=== PATIENT | male | born 1955 | race Caucasian/White ===

== ENCOUNTER 2019-09-18 12:52 | Emergency (ER) | payer OTHER ==
[2019-09-18] MEDS ORDERED: Sodium Chloride 0.9% 2.5 ML Syringe FLUSH PRN (13:21)
[2019-09-18] MEDS ORDERED: Sodium Chloride 0.9% 10 ML Syringe FLUSH PRN (13:21)
[2019-09-18] MEDS ORDERED: Tetracaine HCl/PF 0.5% 4 ML Bottle EYERT ONE (13:22)
--- NOTE | 2019-09-18 14:08 | EDM.PDOC ---
ED HPI GENERAL MEDICAL PROBLEM - General Chief Complaint: Head Injury Stated Complaint: FELL Time Seen by Provider: 09/18/19 13:05 - History of Present Illness INITIAL COMMENTS - FREE TEXT/NARRATIVE: History of present illness: Patient presents to the ED with concerns over right-sided headache and eye pain. He apparently had a syncopal episode he fell and struck his face and found himself on the floor he does not have any reason for the fall and does not clearly recall the events he then developed some headache and he had an abrasion on his face and he developed some eye pain patient then was seen on Thursday at an ED in [facility] records were sent from that facility to include an unremarkable CT of the brain read. I discussed the case with the ED physician who saw him yesterday he had an infected abrasion on his face and what look like it might be a periorbital cellulitis so he was treated with Cipro drops and clindamycin. In spite of this the patient has been getting worse and so he was brought to our facility. Patient states he is having increased headache he does not get headaches frequently he is having eye pain on the right and blurred vision on the right he denies any fever chills he denies any other injuries in regards to the fall. Review of systems: As per history of present illness and below otherwise all systems reviewed and negative. Past medical history: As per history of present illness and as reviewed below otherwise noncontributory. Surgical history: As per history of present illness and as reviewed below otherwise noncontributory. Social history: No reported history of drug or alcohol abuse. Family history: As per history of present illness and as reviewed below otherwise noncontributory. Physical exam: HEENT: There is an abrasion with a surrounding cellulitis on the forehead., normocephalic, pupils reactive, negative for conjunctival pallor or scleral icterus, mucous membranes moist, throat clear, neck supple, nontender, trachea midline. The right eye is erythematous with conjunctival injection the pupil is reactive but seems to be a bit sluggish to me the eyelid is very tender and there is possibly a mild amount of proptosis. Lungs: Clear to auscultation, breath sounds equal bilaterally, chest nontender. Heart: S1S2, regular, negative for clicks, rubs, or JVD. Abdomen: Soft, nondistended, nontender. Negative for masses or hepatosplenom egaly. Negative for costovertebral tenderness. Pelvis: Stable nontender. Genitourinary: Deferred. Rectal: Deferred. Extremities: Atraumatic, negative for cords or calf pain. Neurovascular unremarkable. Neuro: Awake, alert, oriented. Cranial nerves II through XII unremarkable. Cerebellum unremarkable. Motor and sensory unremarkable throughout. Exam nonfocal. Diagnostics: [] Therapeutics: [] Impression: Syncope, fall with an abrasion with now surrounding cellulitis the eye appears infected possible periorbital or retro-orbital cellulitis versus traumatic glaucoma. [] Plan: We will re-CT the brain for occult bleed we will also CT the orbit for a retro-orbital cellulitis or abscess and were going to check his pressures cardiac work-up and reassess. [] Definitive disposition and diagnosis as appropriate pending reevaluation and review of above. headache Pain Score (Numeric/FACES): 7 - Related Data Allergies Allergy/AdvReac Type Severity Reaction Status Date / Time codeine Allergy Anaphylactic Verified 09/18/19 13:14 Shock Penicillins Allergy Anaphylactic Verified 09/18/19 13:14 Shock Home Meds: Home Meds Acetaminophen 500 mg PO ASDIRECTED 09/18/19 [History] Aspirin 81 mg PO DAILY 09/18/19 [History] Clindamycin HCl 150 mg PO QID 09/18/19 [History] Loperamide [Imodium] 2 cap PO ASDIRECTED 09/18/19 [History] Metoprolol Succinate 100 mg PO BID 09/18/19 [History] Multivitamin 1 tab PO DAILY 09/18/19 [History] Ofloxacin [Ocuflox 0.3% Ophth Soln] 1 drop EYEBOTH ASDIRECTED 09/18/19 [History] atorvaSTATin [Lipitor] 80 mg PO DAILY 09/18/19 [History] lisinopriL [Lisinopril] 20 mg PO DAILY 09/18/19 [History] metFORMIN [Glucophage XR] 500 mg PO BID 09/18/19 [History] Past Medical History HEENT History: Reports: Impaired Vision, Other (See Below) Other HEENT History: wears glassess Cardiovascular History: Reports: High Cholesterol, Hypertension Musculoskeletal History: Reports: None Endocrine/Metabolic History: Reports: Diabetes, Type II - Past Surgical History HEENT Surgical History: Reports: Tonsillectomy Cardiovascular Surgical History: Reports: Other (See Below) Other Cardiovascular Surgeries/Procedures: open heart sx Endocrine Surgical History: Reports: None Musculoskeletal Surgical History: Reports: Other (See Below) Other Musculoskeletal Surgeries/Procedures:: R knee x 4, R wrist Social & Family History - Tobacco Use Smoking Status *Q: Former Smoker Used Tobacco, but Quit: Yes Month/Year Tobacco Last Used: "5 years ago" - Caffeine Use Caffeine Use: Reports: Coffee - Recreational Drug Use Recreational Drug Use: No ED ROS GENERAL - Review of Systems Review Of Systems: See Below ED EXAM, GENERAL - Physical Exam Exam: See Below EKG INTERPRETATION EKG Interpretation Comments: EKG is normal sinus rhythm rate of 67 bpm normal axis no ischemia normal EKG read and interpreted by me. Course - Vital Signs Text/Narrative:: Patient's eye was anesthetized using tetracaine a tonometer Amor-Pen was then u sed to examine the patient's ocular pressures 2 separate measurements were taken they were respectively 13 and 16 indicating normal intraocular pressure therefore I do not believe this represents a glaucoma. Patient was stained with floor seen yesterday by the emergency physician and had corneal abrasions and was placed on the ciprofloxacin drops for that reason. There is no evidence of corneal perforation at this time. At 5 PM I discussed the case with Dr. 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 To the ED for worsening symptoms I will also start him on some [place] for pain Last Recorded V/S: Last Vital Signs Temp 35.9 C L 09/18/19 13:00 Pulse 92 09/18/19 16:39 Resp 17 09/18/19 16:39 BP 125/70 09/18/19 16:39 Pulse Ox 98 09/18/19 16:39 - Orders/Labs/Meds Orders: Active Orders 24 hr Category Date Time Status EKG 12 Lead [EKG Documentation Completion] [RC] STAT Care 09/18/19 13:22 Active Visual Acuity [Vision Test] [RC] ASDIRECTED Care 09/18/19 13:23 Active Sodium Chloride 0.9% [Saline Flush] Med 09/18/19 13:21 Active 10 ml FLUSH ASDIRECTED PRN Sodium Chloride 0.9% [Saline Flush] Med 09/18/19 13:21 Active 2.5 ml FLUSH ASDIRECTED PRN Saline Lock Insert [OM.PC] Stat Oth 09/18/19 13:21 Ordered Medication Orders Sodium Chloride (Saline Flush) 10 ml FLUSH ASDIRECTED PRN PRN Reason: Keep Vein Open Last Admin: 09/18/19 15:59 Dose: 10 ml Documented by: MARY ELLEN Sodium Chloride (Saline Flush) 2.5 ml FLUSH ASDIRECTED PRN PRN Reason: Keep Vein Open Last Admin: 09/18/19 15:59 Dose: 2.5 ml Documented by: MARY ELLEN Labs: Laboratory Tests 09/18/19 09/18/19 09/18/19 Range/Units 14:13 14:13 14:13 WBC 6.24 (4.0-11.0) K/uL RBC 4.65 (4.50-5.90) M/uL Hgb 14.6 (13.0-17.0) g/dL Hct 44.2 (38.0-50.0) % MCV 95.1 (80.0-98.0) fL MCH 31.4 (27.0-32.0) pg MCHC 33.0 (31.0-37.0) g/dL RDW Std Deviation 50.3 (28.0-62.0) fl RDW Coeff of [place] 15 (11.0-15.0) % Plt Count 126 L (150-400) K/uL MPV 10.00 (7.40-12.00) fL Neut % (Auto) 70.2 (48.0-80.0) % Lymph % (Auto) 18.9 (16.0-40.0) % [place] % (Auto) 9.8 (0.0-15.0) % Eos % (Auto) 0.8 (0.0-7.0) % Baso % (Auto) 0.3 (0.0-1.5) % Neut # (Auto) 4.4 (1.4-5.7) K/uL Lymph # (Auto) 1.2 (0.6-2.4) K/uL [place] # (Auto) 0.6 (0.0-0.8) K/uL Eos # (Auto) 0.1 (0.0-0.7) K/uL Baso # (Auto) 0.0 (0.0-0.1) K/uL Nucleated RBC % 0.0 /100WBC Nucleated RBCs # 0 K/uL ESR 18 (0-19) mm/hr INR 1.01 Sodium (136-148) mmol/L Potassium (3.5-5.1) mmol/L Chloride (98-107) mmol/L Carbon Dioxide (21.0-32.0) mmol/L BUN (7.0-18.0) mg/dL Creatinine (0.8-1.3) mg/dL Est Cr Clr Drug Dosing mL/min Estimated GFR (MDRD) ml/min Glucose (74-106) mg/dL Calcium (8.5-10.1) mg/dL Total Bilirubin (0.2-1.0) mg/dL AST (15-37) IU/L ALT (14-63) IU/L Alkaline Phosphatase (46-116) U/L Troponin I (0.000-0.056) ng/mL C-Reactive Protein (0.00-0.90) mg/dL Total Protein (6.4-8.2) g/dL Albumin (3.4-5.0) g/dL Globulin (2.6-4.0) g/dL Albumin/Globulin Ratio (0.9-1.6) 09/18/19 09/18/19 Range/Units 14:13 14:13 WBC (4.0-11.0) K/uL RBC (4.50-5.90) M/uL Hgb (13.0-17.0) g/dL Hct (38.0-50.0) % MCV (80.0-98.0) fL MCH (27.0-32.0) pg MCHC (31.0-37.0) g/dL RDW Std Deviation (28.0-62.0) fl RDW Coeff of [place] (11.0-15.0) % Plt Count (150-400) K/uL MPV (7.40-12.00) fL Neut % (Auto) (48.0-80.0) % Lymph % (Auto) (16.0-40.0) % [place] % (Auto) (0.0-15.0) % Eos % (Auto) (0.0-7.0) % Baso % (Auto) (0.0-1.5) % Neut # (Auto) (1.4-5.7) K/uL Lymph # (Auto) (0.6-2.4) K/uL [place] # (Auto) (0.0-0.8) K/uL Eos # (Auto) (0.0-0.7) K/uL Baso # (Auto) (0.0-0.1) K/uL Nucleated RBC % /100WBC Nucleated RBCs # K/uL ESR (0-19) mm/hr INR Sodium 139 (136-148) mmol/L Potassium 3.7 (3.5-5.1) mmol/L Chloride 101 (98-107) mmol/L Carbon Dioxide 27.1 (21.0-32.0) mmol/L BUN 15 (7.0-18.0) mg/dL Creatinine 1.2 (0.8-1.3) mg/dL Est Cr Clr Drug Dosing 65.90 mL/min Estimated GFR (MDRD) > 60.0 ml/min Glucose 103 (74-106) mg/dL Calcium 9.7 (8.5-10.1) mg/dL Total Bilirubin 1.1 H (0.2-1.0) mg/dL AST 27 (15-37) IU/L ALT 39 (14-63) IU/L Alkaline Phosphatase 81 (46-116) U/L Troponin I < 0.050 (0.000-0.056) ng/mL C-Reactive Protein < 0.20 (0.00-0.90) mg/dL Total Protein 7.7 (6.4-8.2) g/dL Albumin 3.8 (3.4-5.0) g/dL Globulin 3.9 (2.6-4.0) g/dL Albumin/Globulin Ratio 1.0 (0.9-1.6) Meds: Medications Generic Name Dose Route Start Last Admin Trade Name Freq PRN Reason Stop Dose Admin Sodium Chloride 10 ml 09/18/19 13:21 09/18/19 15:59 Saline Flush FLUSH 10 ml ASDIRECTED PRN Administration Keep Vein Open Sodium Chloride 2.5 ml 09/18/19 13:21 09/18/19 15:59 Saline Flush FLUSH 2.5 ml ASDIRECTED PRN Administration Keep Vein Open Discontinued Medications Generic Name Dose Route Start Last Admin Trade Name Freq PRN Reason Stop Dose Admin Cyclopentolate HCl 1 ml 09/18/19 17:00 Cyclogyl 1% Opth Soln EYERT 09/18/19 17:01 ONETIME ONE Diphenhydramine HCl 25 mg 09/18/19 16:23 09/18/19 16:37 Benadryl IVPUSH 09/18/19 16:24 25 mg ONETIME ONE Administration Iopamidol 100 ml 09/18/19 15:53 09/18/19 15:53 Isovue-370 (76%) IVPUSH 09/18/19 15:54 100 ml ONETIME ONE Administration Iopamidol 75 ml 09/18/19 15:54 09/18/19 15:55 Isovue-370 (76%) IVPUSH 09/18/19 15:55 75 ml ONETIME ONE Administration Metoclopramide HCl 10 mg 09/18/19 16:24 09/18/19 16:37 Reglan IVPUSH 09/18/19 16:25 10 mg ONETIME ONE Administration Morphine Sulfate 4 mg 09/18/19 14:42 09/18/19 15:12 Morphine IVPUSH 09/18/19 14:43 4 mg ONETIME ONE Administration Ondansetron HCl 4 mg 09/18/19 14:42 09/18/19 15:10 Zofran IVPUSH 09/18/19 14:43 4 mg ONETIME ONE Administration Tetracaine HCl 2 ml 09/18/19 13:22 09/18/19 14:15 Tetracaine 0.5% Steri-Unit Colette EYERT 09/18/19 13:23 2 ml ASDIRECTED ONE Administration Departure - Departure Time of Disposition: 17:13 Disposition: Home, Self-Care 01 Condition: Good Clinical Impression: Concussion injury of brain, Facial cellulitis, Traumatic iritis - Discharge Information *PRESCRIPTION DRUG MONITORING PROGRAM REVIEWED*: Not Applicable *COPY OF PRESCRIPTION DRUG MONITORING REPORT IN PATIENT JA: Not Applicable Instructions: Head Injury, Adult, Preseptal Cellulitis, Adult Referrals: PCP,Not In Area [Primary Care Provider] - Ti Tomlin MD [Ordering Only Provider] - Forms: ED Department Discharge Additional Instructions: The following information is given to patients seen in the emergency department who are being discharged to home. This information is to outline your options for follow-up care. We provide all patients seen in our emergency department with a follow-up referral. The need for follow-up, as well as the timing and circumstances, are variable depending upon the specifics of your emergency department visit. If you don't have a primary care physician on staff, we will provide you with a referral. We always advise you to contact your personal physician following an emergency department visit to inform them of the circumstance of the visit and for follow-up with them and/or the need for any referrals to a consulting specialist. The emergency department will also refer you to a specialist when appropriate. This referral assures that you have the opportunity for follow-up care with a specialist. All of these measure are taken in an effort to provide you with optimal care, which includes your follow-up. Under all circumstances we always encourage you to contact your private physician who remains a resource for coordinating your care. When calling for follow-up care, please make the office aware that this follow-up is from your recent emergency room visit. If for any reason you are refused follow-up, please contact the [facility] Emergency Department at and asked to speak to the emergency department charge nurse. Sepsis Event Note (ED) - Evaluation Sepsis Screening Result: No Definite Risk - Focused Exam Vital Signs: Vital Signs Temp Pulse Resp BP Pulse Ox 09/18/19 16:39 92 17 125/70 98 09/18/19 13:30 69 19 124/60 94 L 09/18/19 13:00 35.9 C L 69 20 153/67 H 94 L - My Orders Last 24 Hours: My Active Orders 09/18/19 13:21 Sodium Chloride 0.9% [Saline Flush] 10 ml FLUSH ASDIRECTED PRN Sodium Chloride 0.9% [Saline Flush] 2.5 ml FLUSH ASDIRECTED PRN Saline Lock Insert [OM.PC] Stat 09/18/19 13:22 EKG 12 Lead [EKG Documentation Completion] [RC] STAT 09/18/19 13:23 Visual Acuity [Vision Test] [RC] ASDIRECTED - Assessment/Plan Last 24 Hours: My Active Orders 09/18/19 13:21 Sodium Chloride 0.9% [Saline Flush] 10 ml FLUSH ASDIRECTED PRN Sodium Chloride 0.9% [Saline Flush] 2.5 ml FLUSH ASDIRECTED PRN Saline Lock Insert [OM.PC] Stat 09/18/19 13:22 EKG 12 Lead [EKG Documentation Completion] [] STAT 09/18/19 13:23 Visual Acuity [Vision Test] [RC] ASDIRECTED
--- NOTE | 2019-09-18 14:17 | CR ---
Chest: Portable view of the chest was obtained. Comparison: No prior chest x-ray. Heart size and mediastinum are within normal limits for portable technique. Previous sternotomy is noted. Lungs are clear with no acute parenchymal change. Bony structures are grossly intact. Impression: 1. Nothing acute is seen on portable chest x-ray. Diagnostic code #1 This report was dictated in MDT
[2019-09-18] MEDS ORDERED: Morphine 4 MG/ML Syringe IVPUSH ONE (14:42)
[2019-09-18] MEDS ORDERED: Ondansetron 4 MG/2 ML SDV IVPUSH ONE (14:42)
[2019-09-18 14:43] LABS: BLOOD UREA NITROGEN,BUN 15 mg/dL (7.0-18.0); CARBON DIOXIDE,CO2 27.1 mmol/L (21.0-32.0); CHLORIDE,CL 101 mmol/L (98-107); GLUCOSE RANDOM 103 mg/dL (74-106); POTASSIUM,K 3.7 mmol/L (3.5-5.1); SODIUM,NA 139 mmol/L (136-148)
[2019-09-18] MEDS ORDERED: Iopamidol 755 Mg/ML 100 ML Bottle IVPUSH ONE ×2 (15:53→15:54)
--- NOTE | 2019-09-18 16:06 | CT ---
Head CT Technique: Multiple axial sections through the brain were obtained. Intravenous contrast was not utilized. Findings: Right and left globes are symmetric. No retrobulbar abnormality is appreciated. Visualized paranasal sinuses and mastoid sinuses show nothing acute. No fracture is identified within the visualized facial bones or within the calvarium. Ventricles along with basal cisterns and sulci over the convexities are within normal limits for the patient's age. No abnormal parenchymal densities are seen. No evidence of intracranial hemorrhage. No midline shift or mass effect is seen. Impression: 1. Nothing acute is seen on head CT study which includes the orbits. Diagnostic code #1 Study was dictated in MDT
--- NOTE | 2019-09-18 16:11 | CT ---
CT orbits Technique: Multiple axial sections were obtained centered to the orbits. Intravenous contrast was utilized. Findings: No retro-bulbar abnormality is appreciated. Right and left globes are symmetric. Extraocular muscles are symmetric. Optic nerves are also symmetric. No surrounding soft tissue mass is seen. Paranasal sinuses show nothing acute. No acute fracture is appreciated. Impression: 1. No abnormality is appreciated on CT study of the orbits. Diagnostic code #1 Study was dictated in MDT
[2019-09-18] MEDS ORDERED: diphenhydrAMINE 50 MG/ML SDV IVPUSH ONE (16:23)
[2019-09-18] MEDS ORDERED: Metoclopramide 10 MG/2 ML SDV IVPUSH ONE (16:24)
[2019-09-18] MEDS ORDERED: Cyclopentolate 1% Opth Soln 2 ML Bottle EYERT ONE (17:00)
[2019-09-18] MEDS ORDERED: Atropine 1% Ophth Soln 5 ML BOTTLE EYERT SCH (22:00)
[2019-09-18] MEDS ORDERED: Atropine 1% Ophth Soln 15 ML Bottle EYERT SCH (22:00)
== END 2019-09-18 18:43 | disposition home or self-care (01) ==
LOC: MW.ED 12:52
DX: R55 Syncope and collapse (principal); S06.0X9A Concussion with loss of consciousness of unspecified duration, initial encounter; S00.81XA Abrasion of other part of head, initial encounter; L03.211 Cellulitis of face; H20.9 Unspecified iridocyclitis; I10 Essential (primary) hypertension; E78.00 Pure hypercholesterolemia, unspecified; E11.9 Type 2 diabetes mellitus without complications; H44.001 Unspecified purulent endophthalmitis, right eye; Z87.891 Personal history of nicotine dependence; Z88.5 Allergy status to narcotic agent; Z88.0 Allergy status to penicillin; Z79.82 Long term (current) use of aspirin; Z79.899 Other long term (current) drug therapy; Z79.84 Long term (current) use of oral hypoglycemic drugs; W19.XXXA Unspecified fall, initial encounter; W22.8XXA Striking against or struck by other objects, initial encounter
CPT/HCPCS: 36415; 70450; 70481; 71045; 80053; 84484; 85025; 85610; 85652; 86140; 93005; 96374; 96375; 99284; J1200; J2270; J2405; J2765; Q9967; 93010; 99283